=== PATIENT | female | born 1995 | race Caucasian/White ===

== ENCOUNTER 2018-08-01 10:44 | Emergency (ER) | payer BC ==
[~2018-08-01] VITALS: Ht 162.6 cm; Wt 51.7 kg
[2018-08-01 11:06] VITALS: BP 120/75
[2018-08-01] MEDS ORDERED: Acetaminophen 500mg (ES) tab ORAL ONE (11:45)
[2018-08-01 14:00] VITALS: BP 122/73
--- NOTE | 2018-08-02 07:58 | Emergency Room Report ---
History of Present Illness General Chief Complaint: Laceration Source: Patient Present Illness HPI 22-year-old female presents ED for evaluation. Patient states that she stepped on glass today may have glass in her left foot. Tetanus is up-to-date. Throbbing, 7 out of 10, nonradiating. Painful to walk. Denies any other injuries. No other aggravating relieving factors. Denies any other associated symptoms Allergies: Coded Allergies: No Known Allergies (Unverified , 08/01/18) Patient History Past Medical History: none Past Surgical History: none Pertinent Family History: none Social History: Denies: smoking, alcohol use, drug use Now: No Immunizations: UTD Reviewed Nursing Documentation: PMH: Agreed; PSxH: Agreed Nursing Documentation-PMH Past Medical History: No Stated History Review of Systems All Other Systems: negative except mentioned in HPI Physical Exam Vital Signs Date Time Temp Pulse Resp B/P (MAP) Pulse Ox O2 Delivery O2 Flow Rate FiO2 08/01/18 10:57 98.8 94 18 120/73 99 Room Air Sp02 EP Interpretation: reviewed, normal General Appearance: no apparent distress, alert, GCS 15, non-toxic Head: normocephalic Eyes: bilateral eye normal inspection, bilateral eye PERRL ENT: normal ENT inspection Neck: normal inspection Respiratory: normal inspection Cardiovascular #1: normal inspection Gastrointestinal: normal inspection Rectal: deferred Genitourinary: no CVA tenderness Musculoskeletal: tender - L foot Neurologic: alert, oriented x3, responsive, motor strength/tone normal, sensory intact, speech normal Psychiatric: judgement/insight normal, memory normal, mood/affect normal, no suicidal/homicidal ideation Skin: other - 1cm laceration to bottom of L foot. minimal bleeding noted. Lymphatic: normal inspection Medical Decision Making Diagnostic Impression: Primary Impression: Foreign body in foot Qualified Codes: S90.852A - Superficial foreign body, left foot, initial encounter ER Course 22 yo F presents with laceration to L foot from possible glass in foot Differential-foreign body, cellulitis, abscess Patient placed on stretcher. After initial history and physical I ordered x- ray and pain medications Patient and mother are very demanding requesting that glass be removed immediately. I explained that I would like to see an x-ray first to attempt to visualize foreign body. Patient and mother declined x-ray. States that they would like to leave and see a head filter press tender in clinic Understands the risks of leaving. Patient has competency to make her own decisions. Signed AMA form. Diagnosis- foreign body in foot left ama Last Vital Signs Date Time Temp Pulse Resp B/P (MAP) Pulse Ox O2 Delivery O2 Flow Rate FiO2 08/01/18 14:00 98.4 91 16 122/73 99 Room Air Status: unchanged Disposition: AGAINST MEDICAL ADVICE Condition: Stable Scripts No Active Prescriptions or Reported Meds Referrals: NOT CHOSEN IPA/,REFERRING (PCP) Blake Andersen MD Aug 02, 2018 07:58
== END 2018-08-01 14:03 | disposition left against medical advice (07) ==
LOC: EMR 11:43
DX: S90.852A Superficial foreign body, left foot, initial encounter (principal); W25.XXXA Contact with sharp glass, initial encounter; Y92.9 Unspecified place or not applicable
CPT/HCPCS: 99282